=== PATIENT | male | born 1970 ===

== ENCOUNTER 2020-01-01 15:56 | Inpatient (IN) ==
[~2020-01-01 15:56] MED LIST: HEPARIN/NACL 0.9% 2 UNITS/ML 1,500 ML IV ONE; LIDOCAINE 1% 20 ML VIAL ONE; MIDAZOLAM 2 MG/2 ML VIAL ONE; fentaNYL 100 MCG/2 ML VIAL ONE
[2020-01-01] MEDS ORDERED: NITROGLYCERIN DRIP 50 MG/250 ML BOTTLE IV ONE (16:23)
[2020-01-01] MEDS ORDERED: HEPARIN 5,000 UNIT/1 ML VIAL ONE (16:32)
[2020-01-01] MEDS ORDERED: EPTIFIBATIDE 20,000 MCG/10 ML VIAL ONE (16:48)
[2020-01-01] MEDS ORDERED: GLUCAGON 1 MG VIAL IM PRN (17:36)
[2020-01-01] MEDS ORDERED: DEXTROSE 50% 25 GM/50 ML VIAL IV PRN (17:36)
[2020-01-01] MEDS ORDERED: SODIUM CHLORIDE 0.9% 1,000 ML IV SCH (18:00)
[2020-01-01 19:19] LABS: Troponin I 46.3 NG/ML (0.00-0.045)
[2020-01-01] MEDS ORDERED: MORPHINE 4 MG/1 ML VIAL IV PRN (19:55)
[2020-01-01] MEDS: INSULIN REGULAR 100 UNIT/ML SUBCUT SCH (20:32)
[2020-01-01] MEDS: TICAGRELOR 90 MG TABLET PO SCH (20:32)
[2020-01-01] MEDS ORDERED: METOPROLOL SUCCINATE XL 25 MG TABLET PO ONE (21:00)
[2020-01-01] MEDS ORDERED: METOPROLOL SUCCINATE XL 50 MG TABLET PO ONE (21:00)
[2020-01-02 05:41] LABS: Basophils # 0.1 10*3/uL (0.0-0.2); Basophils % 0.7 % (0.0-0.8); Eosinophils # 0.5 10*3/uL (0.0-0.87); Eosinophils % 3.3 % (0.00-10.9); Hematocrit 43.3 VOL% (42.0-52.0); Hemoglobin 14.3 GM/DL (14.0-18.0); Immature Granulocytes % 0.6 %; Immature Granulocytes Absolute 0.08 #; Lymphocytes # 4.1 10*3/uL (1.4-4.0); Lymphocytes % 29.7 % (21.2-54.2); Mean Corpuscular Volume 90.8 FL (87-102); Mean Platelet Volume 12.2 FL (9.6-12.0); Monocytes % 7.2 % (1.7-12.7); Neutrophils % 58.5 % (38.7-73.9); Platelet Count 163 T/CUMM (130-400); Red Blood Count 4.77 MC/CUMM (3.8-5.5); Red Cell Distribution Width 12.7 % (9.3-17.3); White Blood Count 13.8 T/CUMM (4-12)
[2020-01-02 06:01] LABS: Atypical Lymphocytes Few; Band Neutrophils 1 % (0-10); Eosinophils 3 % (0-10); Hypochromasia 1+; Lymphocytes 27 % (20-55); Microcytosis Slight; Platelet Estimate Adequate; Segmented Neutrophils 64 % (50-85); Total Cells Counted 100
[2020-01-02 06:10] LABS: Calcium 9.1 MG/DL (8.5-10.1); Osmolality,Calculated 274.2 MOS/KG (273-304); Risk Ratio 6.41; VLDL CHOLESTEROL 47.4 MG/DL
[2020-01-02] MEDS ORDERED: MAGNESIUM SULF RIDER 2 GM in PREMIX 1 EACH IV ONE (07:56)
[2020-01-02] MEDS ORDERED: POTASSIUM CHLORIDE 20 MEQ TABLET PO ONE (07:56)
[2020-01-02] MEDS: TICAGRELOR 90 MG TABLET PO SCH (08:22)
[2020-01-02] MEDS: INSULIN REGULAR 100 UNIT/ML SUBCUT SCH ×2 (08:34→11:30)
[2020-01-02] MEDS ORDERED: lisinopriL 20 MG TABLET PO SCH (09:00)
[2020-01-02] MEDS ORDERED: METOPROLOL SUCCINATE XL 50 MG TABLET PO SCH (09:00)
[2020-01-02] MEDS ORDERED: ATORVASTATIN 80 MG TABLET PO SCH ×2 (09:00→21:00)
[2020-01-02] MEDS ORDERED: ASPIRIN EC 81 MG TABLET PO SCH (09:00)
[2020-01-02] MEDS ORDERED: DEXTROSE 50% 25 GM/50 ML VIAL IV PRN ×2 (09:50→13:59)
[2020-01-02] MEDS ORDERED: GLUCAGON 1 MG VIAL IM PRN (09:50)
[2020-01-02 11:14] VITALS: BP 111/47
[2020-01-02] MEDS ORDERED: NITROGLYCERIN SL 0.4 MG TABLET SL PRN (14:16)
== END 2020-01-02 15:57 | disposition home or self-care (01) | DRG 247 ==
LOC: N.CVR 15:56 → INTOOBSV 15:56 → N.ICU 17:37 → N.TELEN 01-02 11:09
PROVIDERS: ADMIT Internal Medicine Cardiovascular Disease; ATTEND Internal Medicine Cardiovascular Disease
PROC: CLCCHCL (ICD-10-PCS; 2020-01-01 16:45)